=== PATIENT | female | born 1960 | race Caucasian/White ===

== ENCOUNTER → 2017-10-27 14:51 | Outpatient (CLI) | payer MEDICARE, MEDICAID, SELFPAY ==
--- NOTE | 2017-10-27 14:56 | XR_ITS ---
EXAM: XR cervical spine 5V HISTORY: ITS.REASON: LT SIDED NECK PAIN ORDERING PHYSICIAN: Satnam Anne MD PATIENT AGE: 57 years COMPARISON: None FINDINGS: Mild multilevel degenerative disc disease is present from C2 to C7 more extensive and C4-C5 C5-C6 and C6-C7. There are small endplate osteophytes. There is minimal anterolisthesis of C3 of 2 mm likely degenerative in nature. Mild facet and uncovertebral arthritic changes are present with left-sided foraminal narrowing at C3-C4 C4-C5 and C5-C6. No fracture or dislocation. No lytic or blastic change. No evidence of cervical rib. IMPRESSION: Cervical spondylosis with degenerative disc disease and facet arthritic change as detailed above
--- NOTE | 2017-10-27 14:58 | CT_ITS ---
EXAM: CT LUNG LOW DOSE WO CONTRAST COMPARISON: None HISTORY: 57-year-old male with 30 pack-year smoking history asymptomatic ORDERING PHYSICIAN: Satnam Anne MD PATIENT AGE: 57 years TECHNIQUE: The exam was performed on a GE Light Speed [address] scanner using 2.94 mGy CTDI. A low dose helical CT CHEST was performed on a multi-detector scanner The LDCT was performed in a facility that meets the criteria for the screening program. Data regarding this exam was submitted to ACR which is an approved registry. The order for this exam indicates that it came as a result of a lung cancer screening counseling shard decision-making visit that included all the elements required of such a visit including smoking cessation. The radiologist interpreting this exam meets the [facility] criteria for the LDCT lung cancer screening program. The exam is reported using the Lung-RADS classification scale and reported to the ACR registry. NOTE: This study was performed for the specific purposes of lung cancer screening and is not an alternative to diagnostic chest CT. RADIATION DOSE: CTDI vol(CT dose Index-volume) = 2.94mG DLP (Dose Length Product) = 105.59 mGcm FINDINGS: Indeterminate or Suspicious Lung Nodules(Category3-4B): None Indeterminate/Non-actionable Nodules(Category2): None Benign nodules(Category1)None LUNG PARENCHYMA Emphysema: Unremarkable Airways disease: Not apparent Fibrosis: OTHER ANATOMIC REGIONS Lymph Nodes: Calcified hilar nodes Pleura: Unremarkable Cardiac: Coronary artery calcifications and/or stents OTHER FINDINGS: No other pertinent findings evident IMPRESSION: 1. Lung RADS Category: 1, NEGATIVE 2. Other findings: Coronary artery disease RECOMMENDATIONS: 12 month LDCT screening exam
== END ==
PROVIDERS: Family Provider Family Medicine; PCP Family Medicine; Visit Provider Family Medicine
DX: M54.2 Cervicalgia (principal); Z12.2 Encounter for screening for malignant neoplasm of respiratory organs; Z87.891 Personal history of nicotine dependence
CPT/HCPCS: 72050

== ENCOUNTER → 2018-04-13 13:42 | Outpatient (CLI) | payer MEDICARE, MEDICAID, SELFPAY ==
[2018-04-13 14:53] VITALS: PULSE 83; PULSE 84
== END ==
PROVIDERS: Family Provider Family Medicine; PCP Family Medicine; Visit Provider Family Medicine
DX: J41.0 Simple chronic bronchitis (principal)
CPT/HCPCS: 94060; 94640; 94726; 94729

== ENCOUNTER 2022-07-23 18:19 | Emergency (ER) | payer MEDICARE, MEDICAID, SELFPAY ==
[2022-07-23 18:19] VITALS: BP 118/80; PULSE 66; RESP 16; TEMP 36.6; O2SAT 98; BMI 34.1
--- NOTE | 2022-07-23 18:32 | HMH.EDWNDL ---
Discharge Plan Disposition Patient Disposition: Home, Self-Care Condition: Good Chief Complaint: Wound/Laceration Activity Restrictions/Add. Instructions Additional Instructions/Restrictions: Follow-up with your primary care physician in approximately 3 days to have the wound checked. Return to the emergency department immediately if you feel worse in any way including worsening headache and/or nausea and vomiting. Clinical Impressions Clinical Impression: Laceration Instructions Patient Instructions: DI for Laceration Repair-Skin Glue Discharge ED Provider: Prasanna Galvan Wound/Laceration HPI General Chief Complaint: Wound/Laceration Stated Complaint: fall Time Seen by Provider: 07/23/22 18:32 Mode of Arrival: EMS Source of Information: Patient Limitations: No Limitations Description of Symptoms (Recalled from ER Triage Doc. by RN): to ed per squad pt states tripped over door frame and hit her head against the wall. denies any LOC History of Present Illness HPI narrative: The patient presents to the emergency department after having tripped and fallen. She struck her head against a wall. She did not lose consciousness. She is not on any blood thinners other than aspirin daily. She denies any alcohol use. She has not vomited. She feels normal. This happened approximately half an hour prior to arrival. She sustained a laceration to her right forehead. She denies neck pain. [facility] Social History Smoking Status: Never smoker ROS Obtained: Yes All systems reviewed & no additional complaints except as documented Physical Exam General General appearance: alert and in no apparent distress Head Head exam: normocephalic, normal inspection and other (There is a small superficial hematoma to the left forehead. There is a 4 cm laceration to the right forehead. There is no active bleeding.) Eye Eye exam: Present normal appearance, PERRL and EOMI ENT ENT exam: Present normal exam, normal oropharynx, mucous membranes moist, TM's normal bilaterally and normal external ear exam Neck Neck exam: Present normal inspection, full ROM and trachea midline; Absent meningismus or lymphadenopathy Chest Chest inspection: Present normal inspection and symmetric chest wall rise; Absent tenderness Respiratory Respiratory exam: Present normal lung sounds bilaterally; Absent respiratory distress Cardiovascular Cardiovascular exam: Present regular rate and normal rhythm; Absent JVD Abdominal Exam Abdominal exam: Present soft and normal bowel sounds; Absent distention, tenderness or guarding Extremities Exam Extremities exam: Present normal inspection, full ROM and normal capillary refill; Absent calf tenderness Back Exam Back exam: Present normal inspection; Absent tenderness Neurological Exam Neurological exam: Present alert and oriented X3 Psychiatric Psychiatric exam: Present normal affect and normal mood Skin Skin exam: Present warm, dry, intact and normal color Lymphatic Lymphatic Findings: no adenopathy Medical Decision Making Samson Inquiry Pt receiving controlled substance: No Vital Signs: 07/23/22 18:19 Temperature 97.9 F Temperature Source Oral Pulse Rate [Radial] 66 Respiratory Rate 16 Blood Pressure [Right Arm] 118/80 Blood Pressure Mean [Right Arm] 92 Blood Pressure Position [Right Arm] Sitting 02 Sat by Pulse Oximetry 98 Oxygen Delivery Method Room Air Medical Decision Narrative: The patient tripped and fell and sustained a contusion and laceration to her forehead. She does not meet any criteria for head CT at this time. The patient's wound was repaired with Dermabond. She can be safely discharged without head CT or laboratory work-up. She has received instructions to return to the emergency department if she starts feeling nausea or worsening headache. The patient has expressed understanding of this and is willing to do so. Procedures [place]
--- NOTE | 2022-07-23 18:33 | PC.NURSE ---
Assisted ER with PT's lac on head; applied dermabond
[2022-07-23 19:00] VITALS: BP 136/85; PULSE 60; RESP 20; O2SAT 96
--- NOTE | 2022-07-23 19:22 | PC.NURSE ---
FAMILY ON THEIR WAY , SHOULD BE HERE AROUND 9
[2022-07-23 19:30] VITALS: BP 161/82; PULSE 60; O2SAT 96
[2022-07-23 20:00] VITALS: BP 171/100; PULSE 63; O2SAT 98
[2022-07-23 21:03] VITALS: BP 124/68; PULSE 64; RESP 16; TEMP 36.6; O2SAT 97
== END 2022-07-23 21:32 | disposition home or self-care (01) ==
PROVIDERS: Emergency Provider Emergency Medicine; PCP Family Medicine
DX: S01.81XA Laceration without foreign body of other part of head, initial encounter (principal); W18.49XA Other slipping, tripping and stumbling without falling, initial encounter; W22.01XA Walked into wall, initial encounter; Z23 Encounter for immunization
CPT/HCPCS: 90471; 90715; 99283

== ENCOUNTER 2023-11-15 15:17 | Outpatient (CLI) | payer MEDICARE, MEDICAID, SELFPAY | END 2023-11-15 23:59 | LOC: RT 15:18 | PROVIDERS: PCP Family Medicine; Visit Provider Nurse Practitioner | DX: I48.91 Unspecified atrial fibrillation (principal); R06.09 Other forms of dyspnea | CPT/HCPCS: 93225 ==

== ENCOUNTER 2023-11-17 15:30 | Outpatient (CLI) | payer MEDICARE, MEDICAID, SELFPAY | END 2023-11-17 23:59 | LOC: RT 15:31 | PROVIDERS: PCP Family Medicine; Visit Provider Nurse Practitioner | DX: I48.91 Unspecified atrial fibrillation (principal) | CPT/HCPCS: 93270 ==

== ENCOUNTER 2023-12-01 06:14 | Outpatient (CLI) | payer MEDICARE, MEDICAID, SELFPAY ==
--- NOTE | 2023-12-01 | CA_ITS ---
APPROVED REPORT Exam: Pharmacologic Technologist: Farzaneh Collazo, Ht: 5 ft 4 in Wt: 200 lbs BSA: 1.96 m2 HR: 66 bpm BP: 110/69 mmHg Rhythm: NSR Medical History Medications: Lisinopril,,,,, Aspirin,,,,, Metoprolol,,,,, Metformin,,,,, Gabapentin,,,,, Glimepiride,,,,, Farxiga,,,,, Albuterol,,,,, Venlafaxine,,,,, DulaGLUTIDE,,,,, PraAVASTATIN,,,,, Spirivia,,,,, Cardiac Risk Factors: HTN, Hyperlipidemia, Diabetes (non-insulin) Stress Test Details Test: LEXISCAN HR Resting HR: 65 bpm Max Heart Rate (APMHR): 155 bpm Max HR Achieved: 84 bpm Target HR (85% APMHR): 132 bpm % of APMHR: 54 Recovery HR: 73 bpm BP Resting BP: 110/69 mmHg Max BP: 137/68 mmHg Recovery BP: 128.0/63.0 mmHg ECG Resting ECG: NSR, RBBB, non-specific ST changes, PVCs Stress ECG: No significant ST changes Arrhythmia: PVCs Clinical Exercise duration: 04:00 min Highest Stage Achieved: Exercise capacity: 1.0 METs Stress ECG Conclusion During lexiscan pt experinced head discomfort and mild SOA. No CP noted. Ectopy: Occasional PVC noted. ST changes: None Conclusion: Unremarakble lexiscan stress. Myoview images reported separately. Test Summary REST . . . . . . . Sitting REST 06:30 . . 65 . 110/ 69 . . Stage 1 01:00 . . 74 . . . . Stage 2 01:00 . . 80 . 118/ 64 . . Stage 3 01:00 . . 79 . 137/ 68 . . Stage 4 01:00 . . 74 . 131/ 60 . Stop exercise at 04:00 RECOVERY 01:00 . . 75 . . . . RECOVERY 02:00 . . 72 . . . . RECOVERY 03:00 . . 68 . 128/ 63 . . RECOVERY 03:40 . . 68 . 118/ 60 . . Electronically signed by : Hermila Waterman MD 12/03/2023 15:54:15
--- NOTE | 2023-12-01 06:35 | NM_ITS ---
APPROVED REPORT Exam: Nuclear Stress Test Indication: soa Patient Location: Outpatient Stress Tech: Farzaneh COLLIER Tech:Deidre SinghLEONARD RT(R)(N) Ht: 5 ft 4 in Wt: 197 lbs Bra Size: 36c HR: 65 bpm BP: 110/69 mmHg BSA: 1.94 m2 Rhythm: NSR TID: 1.16 BMI: 33.8 History: soa Procedure: Patient received 0.4 mg of intravenous Lexiscan, resting heart rate 65 bpm, resting blood pressure 110/69 mmHg, with Lexiscan maximum heart rate achieved was 84 bpm which is 85 % of the maximum predicted heart rate and blood pressure was 137/68 mmHg. With Lexiscan, patient denied any complaint of chest pain. Cardiac Stress and Resting SPECT Images: Cardiac Stress and Resting SPECT images were obtained using technetium 99m Myoview 31.2 mCi stress and 10.15 mCi at rest. Technically difficult study due to significant radiotracer GI uptake in close proximity to the cardiac borders. This may affect the diagnostic interpretation of the study findings. Resting and stress imaging in supine and prone positions demonstrate a large sized, moderate, predominantly fixed perfusion defect in the inferior LV wall. There is also medium sized, moderate, predominantly fixed perfusion defect in the mid to distal anterior LV wall and towards the LV apex. There is a small region of reversibility noted in the LV apex. Gated imaging demonstrates normal global LV systolic function. There is mild hypokinesis of the basal inferior LV wall and the distal anterior LV wall. LVEF is calculated at 58%. Conclusion: Large sized, moderate, predominantly fixed perfusion defect in the inferior LV wall. There is also medium sized, moderate, predominantly fixed perfusion defect in the mid to distal anterior LV wall and towards the LV apex. There is a small region of reversibility noted in the LV apex. Gated imaging demonstrates normal global LV systolic function. There is mild hypokinesis of the basal inferior LV wall and the distal anterior LV wall. LVEF is calculated at 58%. Electronically signed by : Hermila Waterman MD 12/03/2023 15:59:47
--- NOTE | 2023-12-01 06:40 | US_ITS ---
FINAL REPORT CLINICAL HISTORY: claudication FINDINGS: COMPLETE ANKLE/BRACHIAL INDICES BILATERAL Ankle brachial indices were obtained. The right LYRIC is 0.9. The left LYRIC is 0.8. IMPRESSION: Borderline LYRIC on the right. Mild vascular disease on the left. Reviewed, Interpreted and Dictated by Kayden Liu III, MD Transcribed by Pam Huizar Authenticated and [facility]
--- NOTE | 2023-12-01 06:40 | CA_ITS ---
FINAL REPORT TECHNIQUE: Color Doppler, duplex Doppler and vázquez scale sonography of the bilateral neck arterial vasculature was performed. Velocities were measured in the carotid arteries. Stenosis evaluation based on the validated velocity criteria. CLINICAL HISTORY: dizziness, Known Left ICA stenosis 65%. FINDINGS: The peak systolic velocity of the right common carotid artery is 100 cm/s. The peak systolic velocity of the right internal carotid artery is 110 cm/s and end diastolic velocity 25 cm/s. The ICA/CCA ratio is 1.8. A small amount of plaque is present. The right external carotid artery is patent. The right vertebral artery is patent with antegrade flow. The peak systolic velocity of the left common carotid artery is 74 cm/s. The peak systolic velocity of the left internal carotid artery is 297 cm/s and end diastolic velocity 73 cm/s. The ICA/CCA ratio is 4.6. A moderate amount of plaque is present. The left external carotid artery is patent.The left vertebral artery is patent with antegrade flow. IMPRESSION: Less than 50% stenosis on the right. 70-99% stenosis on the right. Bilateral patent vertebral arteries with antegrade flow. If indicated, CTA or MRA could further evaluate. Reviewed, Interpreted and Dictated by Kayden Liu III, MD Transcribed by Pam Huizar Authenticated and . [facility]
--- NOTE | 2023-12-01 06:51 | CA_ITS ---
APPROVED REPORT EXAM: Comprehensive 2D, Doppler, and color-flow Echocardiogram Voltage Inspector: Jeanette Paez RDCS Ht: 5 ft 4 in Wt: 200lbs BSA: 1.96 BP: 136/52 mmHg Indications: CAD,CM,PAF,COPD M-Mode Dimensions RVDd 1.37 cm (0.9-2.6) LA Diam 3.32 cm (1.9-4.0) LVDd 5.66 cm (3.5-5.7) LVDs 4.03 cm (3.5-5.7) IVSd 0.68 cm (0.6-1.1) PWd 1.03 cm (0.6-1.1) EF (Teich) 54.70% FS 28.80% EDV (Teich) 157.50 mL ESV (Teich) 71.30 mL LV Diastology E Decel Time 313 (160-240 msec) E/A Ratio 1.2 Mitral Valve MV E Max Marko. 108.0 (40-130 cm/s) MV A Velocity 93.0 (40-130 cm/s) E/A Ratio 1.16 MV PHT 92.0 ms Left Ventricle The left ventricle is normal size. The left ventricular systolic function is normal. The left ventricular ejection fraction is within the normal range. There is normal left ventricular wall thickness. There is normal LV segmental wall motion. The left ventricular diastolic function is normal. LVEF is 55%. Right Ventricle The right ventricle is normal size. The right ventricular systolic function is normal. Atria The left atrium size is normal. The right atrium size is normal. There is no Doppler evidence of interatrial shunt. Aortic Valve The aortic valve opens well. There is no aortic valvular stenosis. No aortic regurgitation is present. Mitral Valve The mitral valve is normal in structure. No evidence of mitral valve stenosis. Mild mitral regurgitation. Tricuspid Valve The tricuspid valve leaflets are thin and pliable. Trace tricuspid regurgitation. There is insufficient TR jet to estimate RVSP. Pulmonic Valve The pulmonary valve is normal in structure. Trace pulmonic regurgitation. Great Vessels The aortic root is normal in size. The ascending aorta is normal in size. IVC is normal in size and collapses >50% with inspiration. Pericardium Trivial pericardial effusion. No acute indications of tamponade. Other Information Study Quality: Fair Conclusion Normal biventricular systolic function. Mild MR. Electronically signed by : Hermila Waterman MD 12/04/2023 12:27:57
[2023-12-01] MEDS: SODIUM CHLORIDE 0.9% 10ML SYR (RAD ONLY) 10 ML IV ×2 (09:24)
[2023-12-01] MEDS: REGADENOSON 0.4MG/5ML SYRINGE 0.400000000000000022 MG IV (09:24)
[2023-12-01] MEDS: ISOTOPE MYOVIEW (PER STUDY) 1 DOSE IV (09:24)
== END 2023-12-01 23:59 ==
LOC: RAD 06:15
PROVIDERS: PCP Family Medicine; Visit Provider Nurse Practitioner
DX: R07.9 Chest pain, unspecified (principal); R42 Dizziness and giddiness; I70.213 Atherosclerosis of native arteries of extremities with intermittent claudication, bilateral legs; R94.31 Abnormal electrocardiogram [ECG] [EKG]
CPT/HCPCS: 78452; 93017; 93018; 93306; 93880; 93923; A9502; J2785

== ENCOUNTER 2024-01-15 07:36 | Day surgery (SDC) | payer MEDICARE, MEDICAID, SELFPAY ==
[2024-01-15] VITALS (14 sets, daily range): BP systolic 96–143; BP diastolic 42–92; PULSE 62–80; RESP 17–22; TEMP 36.1–36.6; O2SAT 92–99; BMI 33.6
--- NOTE | 2024-01-15 07:02 | IR_ITS ---
APPROVED REPORT Patient Location: Outpatient Public Speaking Instructor: LEONARD Molina RT (R) PROCEDURES Selective coronary angiogram Left heart catheterization Percutaneous stenting of a chronically occluded ostial proximal mid and distal dominant right coronary artery INDICATION Angina pectoris, Abnormal Myoview, Chronic occlusion of the right coronary artery, Coronary artery disease Informed consent was obtained prior to the procedure. COMPLICATIONS NONE Estimated Blood Loss: LESS THAN 10 ML TECHNIQUE One percent lidocaine used to anesthetize the right anterior aspect of the wrist. The right radial artery was accessed via the Seldinger technique. A 75 cm hydrophilic 6 Korean sheath was placed in the right radial artery. 2.5 mg of Verapamil, 800 mcg of nitroglycerin, 1mg Lidocaine and 5000 U Heparin were given through the arterial sheath. The papa catheter was also used to perform selective coronary angiogram. At the end of the diagnostic angiogram therapeutic heparin was administered giving a therapeutic ACT and the guide catheter was placed in the right coronary artery followed by Choice PT extra-support wire pushing through the chronic occlusion. A 2.5 x 12 mm noncompliant balloon was deployed at 10 to 12 berenice to predilate the stenosis which restored antegrade flow. A 2.75 x 38 mm [place] frontier stent was placed in the proximal to mid segment and deployed at 20 and then 24 berenice. A 3 mm x 12 mm noncompliant balloon was then deployed in the midportion of the stent and deployed at 24 berenice to further post dilate. The balloon was deployed at 24 berenice throughout the distal and proximal portion post dilating. An additional 2.75 x 34 mm Caden frontier stent was placed distal to the for stent yet still overlapping and deployed at 18 berenice. The balloon was brought back and deployed at 24 berenice to mesh the stents and a further post dilate. An additional 3 mm x 12 mm [place] frontier stent was placed in the ostial portion of the right coronary artery and deployed at 24 berenice further post dilating and opening the stenosis. KRISHNA 0 flow was present at the beginning of the procedure with KRISHNA-3 flow at the end of the procedure. 800 mcg of intracoronary nitroglycerin was administered. The sheath was removed and hemostasis was achieved using TR banding patient was transferred to the postop holding in stable condition ANGIOGRAPHIC RESULTS The left main artery Normal The left anterior descending artery Has proximal 20 to 30% smooth stenosis with diffuse 10% luminal irregularities along tortuous bends throughout the LAD. The circumflex artery Is a nondominant vessel and has proximal 20% stenosis with a mid vessel eccentric 50 to 60% stenosis just distal to the first obtuse marginal artery. The distal circumflex artery collateralizes the right coronary The right coronary artery Dominant and proximally occluded with [id number] collaterals. Following revascularization the ostial proximal mid distal segment of the [place] right coronary was widely patent with antegrade KRISHNA-3 flow. The WALTON ventriculogram reveals Was not performed The left ventricular end-diastolic pressure 15 mmHg IMPRESSION Chronically occluded dominant right coronary as described above Successful stenting of the dominant right coronary 100% occlusion reduced to 0% with 3 contiguous drug-eluting stents Persistent moderate to severe stenosis in the nondominant mid circumflex artery which is best managed medically at this point given the relatively small caliber/diameter of the vessel Normal LVEDP PLAN 1. Dual antiplatelet therapy 2. Cardiac rehabilitation 3. LDL less than 55 to achieve that high intensity statin 4. Avoidance of tobacco products 5. Risk factor modification 6. Medical management for the circumflex artery stenosis Electronically signed by : Alphonso Garcia MD 01/15/2024 09:52:30
[2024-01-15 08:08] LABS: Basophils # 0.2 K/mm3 (0-0.2); Basophils % 2.5 % (0.1-2.0); Eosinophils # 0.1 K/mm3 (0.0-0.4); Eosinophils % 1.8 % (0.1-12.0); Hematocrit 45.1 % (37.0-47.0); Hemoglobin 14.5 g/dL (12.2-16.2); Lymphocytes # 1.5 K/mm3 (0.7-4.5); Lymphocytes % 20.5 % (10-50); Mean Corpuscular HGB Conc 32.1 g/dL (31.8-35.4); Mean Corpuscular Hemoglobin 30.3 pg (27.0-31.2); Mean Corpuscular Volume 94.2 fl (81-99); Mean Platelet Volume 8.9 fl (7.4-10.4); Monocytes # 0.4 K/mm3 (0.1-1.0); Monocytes % 5.4 % (1.7-9.3); Neutrophils % 69.8 % (37.0-80.0); Platelet Count 232 K/mm3 (142-424); Red Blood Count 4.79 M/mm3 (4.20-5.40); Red Cell Distribution Width 13.9 % (11.5-17.5); White Blood Count 7.2 K/mm3 (4.8-10.8)
[2024-01-15 08:24] LABS: Anion Gap 12.2 mEq/L (5-15); Blood Urea Nitrogen 14 mg/dl (7-17); Calcium 9.7 mg/dl (8.4-10.2); Carbon Dioxide 26 mmol/L (22.0-30.0); Chloride 107 mmol/L (98-107); Creatinine Clearance Estimated 79 mL/min (50-200); Estimated Glomerular Filt Rate 72 ml/min (>60); GFR (African American) 87 ML/MIN (>60); Glucose 188 mg/dl (74-100); Potassium 4.2 mmoL/L (3.5-5.1); Sodium 141 mmol/L (136-145)
[2024-01-15] MEDS: diphenhydrAMINE 50MG/ML VIAL 50 MG IV (08:51)
[2024-01-15] MEDS: NITROGLYCERIN 800MCG/8ML SYR (CATH LAB) 800 MCG IA (08:51)
[2024-01-15] MEDS: VERAPAMIL 2.5MG/ML 2ML VIAL 2.5 MG IV (08:51)
[2024-01-15] MEDS: HEPARIN 1,000 UNITS/500ML NS (CATH LAB) 3000 UNIT IV (08:52)
[2024-01-15] MEDS: 0.9 % SODIUM CHLORIDE 500 ML 25 ML IV (08:52)
[2024-01-15] MEDS: LIDOCAINE 1% 10ML MDV 20 ML IJ (08:52)
[2024-01-15] MEDS: HEPARIN 1,000 UNITS/ML 10ML VIAL (CATH LAB) 10000 UNIT IV (09:24)
[2024-01-15] MEDS: FENTANYL 100MCG/2ML VIAL 50 MCG IV (09:49)
[2024-01-15] MEDS: MIDAZOLAM HCL 1MG/1ML 5ML VIAL 1 MG IV (09:49)
[2024-01-15] MEDS: CLOPIDOGREL 300MG TABLET 600 MG PO (10:02)
[2024-01-15] MEDS: IOPAMIDOL-370 (76%);100ML BOTTLE 150 ML IV (10:20)
--- NOTE | 2024-01-15 11:50 | SUR.PHASEII ---
Report to Leonor in [place], patient transferred for continued recovery/dishcarge
[2024-01-15 15:32] LABS: CATHL Activated Clotting Time > 400 SEC (74-125)
== END 2024-01-15 14:16 | disposition home or self-care (01) ==
PROVIDERS: PCP Family Medicine; Visit Provider Internal Medicine
DX: I25.10 Atherosclerotic heart disease of native coronary artery without angina pectoris (principal); Z95.5 Presence of coronary angioplasty implant and graft; R94.39 Abnormal result of other cardiovascular function study; E78.5 Hyperlipidemia, unspecified; I10 Essential (primary) hypertension; I48.0 Paroxysmal atrial fibrillation; E11.9 Type 2 diabetes mellitus without complications; Z79.84 Long term (current) use of oral hypoglycemic drugs; I25.5 Ischemic cardiomyopathy; J44.9 Chronic obstructive pulmonary disease, unspecified; Z79.899 Other long term (current) drug therapy; I65.23 Occlusion and stenosis of bilateral carotid arteries; I25.82 Chronic total occlusion of coronary artery
CPT/HCPCS: 80048; 85025; 85347; 92928; 93454; 99152; 99153; C1725; C1769; C1876; C9600; J1644; Q9967

== ENCOUNTER 2024-04-24 09:00 | Outpatient (CLI) | payer MEDICARE, MEDICAID, SELFPAY ==
--- NOTE | 2024-04-24 09:12 | XR_ITS ---
FINAL REPORT TECHNIQUE: Bone mineral density was calculated of the lumbar spine and hip. CLINICAL HISTORY: SCREENING FOR OSTEOPOROSIS COMPARISON: None FINDINGS: Using L1-4, the bone mineral density of the spine is 0.985 g/cm2, corresponding to T-score of -0.5. Using the right hip, the bone mineral density of the femoral neck is 0.590 g/cm2, corresponding to a T-score of -2.3. Using the left hip, the bone mineral density of the femoral neck is 0.513 g/cm?, corresponding to a T-score of -3.0. NOTE: T-score: Standard deviation compared with peak bone mass of young adult mean. *Following the recommendations of the International Society of Bone densitometry, classification of hip BMD is based on the lower of two T-scores; total hip or femoral neck. IMPRESSION: Diminished bone mineral density of the right hip consistent with osteopenia. Diminished bone mineral density of the left hip, consistent with osteoporosis. Normal bone mineral density of the lumbar spine, although this is likely falsely elevated secondary to sclerosis in the lumbar spine. Reviewed, Interpreted and Dictated by Kayden Liu III, MD Transcribed by Nuris Edmondson Authenticated and [facility]
== END 2024-04-24 23:59 | disposition home or self-care (01) ==
LOC: RAD 09:00
PROVIDERS: PCP Family Medicine; Visit Provider Family Medicine
DX: Z13.820 Encounter for screening for osteoporosis (principal); M85.88 Other specified disorders of bone density and structure, other site; M81.0 Age-related osteoporosis without current pathological fracture
CPT/HCPCS: 77080

== ENCOUNTER 2025-09-02 15:50 | Outpatient (CLI) | payer MEDICARE, MEDICAID, SELFPAY ==
[2025-09-02 19:14] LABS: Alanine Aminotransferase 53 U/L (12-78); Albumin Level 4.4 g/dl (3.5-5.0); Albumin/Globulin Ratio 1.5 (1.1-1.8); Alkaline Phosphatase 79 U/L (38-126); Anion Gap 13.6 mEq/L (5-15); Aspartate Amino Transferase 57 U/L (14-36); Bilirubin,Total 0.4 mg/dl (0.2-1.3); Blood Urea Nitrogen 19 mg/dl (7-17); Calcium 9.7 mg/dl (8.4-10.2); Carbon Dioxide 24 mmol/L (22.0-30.0); Chloride 104 mmol/L (98-107); Creatinine,Serum 0.90 mg/dl (0.52-1.04); Estimated Glomerular Filt Rate 62 ml/min (>60); GFR (African American) 76 ML/MIN (>60); Globulin 3.0 g/dL (1.3-3.2); Glucose 134 mg/dl (74-100); Potassium 4.6 mmoL/L (3.5-5.1); Sodium 137 mmol/L (136-145); Total Protein,Serum 7.4 g/dl (6.3-8.2)
== END 2025-09-02 23:59 | disposition home or self-care (01) ==
LOC: LAB.DROPOF 09-03 13:23
PROVIDERS: PCP Family Medicine; Visit Provider Family Medicine
DX: E11.9 Type 2 diabetes mellitus without complications (principal)
CPT/HCPCS: 80053